=== PATIENT | female | born 2000 | race Hispanic/Latino ===

== ENCOUNTER 2022-03-03 23:09 | Emergency (ER) | payer OTHER ==
[~2022-03-03] VITALS: Ht 152.4 cm; Wt 58.4 kg
[2022-03-04] MEDS ORDERED: CETIRIZINE (ZyrTEC) 10 MG TAB PO ONE (07:35)
[2022-03-04] MEDS ORDERED: LIDOCAINE 5% (LIDODERM) PATCH TD ONE (07:35)
[2022-03-04] MEDS ORDERED: NAPROXEN 250 MG TAB PO ONE (07:35)
[2022-03-04] MEDS ORDERED: BENZONATATE 100MG CAPSULE PO ONE (07:35)
[2022-03-04 07:58] LABS: BASO % 0.3 % (0.0-1.0); EOS # 0.2 10^3/uL (0.0-0.5); EOS % 2.5 % (0.0-3.0); HEMATOCRIT 38.4 % (36.0-47.0); HEMOGLOBIN 12.7 g/dl (12.0-15.5); LYMPH # 2.9 10^3/uL (1.5-5.0); LYMPH % 31.5 % (24.0-44.0); MEAN CORPUSCULAR HEMOGLOBIN 28.7 pg (27.0-33.0); MEAN CORPUSCULAR HGB CONC 33.1 g/dl (32.0-36.5); MEAN CORPUSCULAR VOLUME 86.7 fl (80.0-96.0); MONO # 0.7 10^3/uL (0.0-0.8); MONO % 7.7 % (2.0-8.0); NEUTROPHILS # 5.3 10^3/uL (1.5-8.5); NEUTROPHILS % 57.7 % (36.0-66.0); PLATELET COUNT, AUTOMATED 223 10^3/uL (150-450); RED BLOOD COUNT 4.43 10^6/uL (4.00-5.40); WHITE BLOOD COUNT 9.2 10^3/uL (4.0-10.0)
[2022-03-04 08:13] LABS: PROTHROMBIN TIME 13.6 SECONDS (12.7-14.5)
[2022-03-04 08:14] LABS: PARTIAL THROMBOPLASTIN TIME 28.8 SECONDS (25.9-37.0)
[2022-03-04 08:30] LABS: ERYTHROCYTE SEDIMENTATION RATE 8 mm/hr (0-20)
[2022-03-04 08:41] LABS: D-DIMER QUANT < 270.0 ng/ml (<500)
[2022-03-04] MEDS ORDERED: guaiFENesin ER 600 MG TAB PO SCH (09:00)
[2022-03-04 09:01] VITALS: BP 112/75
[2022-03-04] MEDS ORDERED: MUCI1TAB16 PO (09:29)
[2022-03-04] MEDS ORDERED: BENZ200C70 PO (09:29)
[2022-03-04] MEDS ORDERED: ASPE4PAD TOP (09:29)
[2022-03-04] MEDS ORDERED: NAPR-837 PO (09:29)
[2022-03-04] MEDS ORDERED: **NOTE PATIENT COMMENT** MISC XX SCH (21:00)
== END 2022-03-04 09:42 | disposition home or self-care (01) ==
LOC: M ED 23:09
DX: R09.1 Pleurisy (principal); R04.2 Hemoptysis; R05.9 Cough, unspecified; Z88.1 Allergy status to other antibiotic agents; Z79.899 Other long term (current) drug therapy